=== PATIENT | male | born 1940 | race Caucasian/White ===

== ENCOUNTER → 2016-03-27 | Outpatient (CLI) | payer OTHER ==
--- NOTE | 2016-03-29 08:18 | DX ---
DEXA Bone Densitometry Technique: DEXA scan was performed on [employer] W Bone Densitometer Indication: Osteoporosis Comparator Study: March 01, 2014 Results: Lumbar Spine BMD: 0.889 T-score: -1.8 Prior BMD: 0.809 % change: 9.9% Total Hip (Right) BMD: 0.643 T-score: -2.6 Femoral Neck (Right) BMD: 0.557 T-score: -2.7 Total Hip (Left) BMD: 0.705 T-score: -2.2 Femoral Neck (Left) BMD: 0.595 T-score: -2.5 CONCLUSION: Osteoporosis ADDITIONAL COMMENTS: In comparison to the previous study from February 2013 there's been a significant increase in the bone mineral density of the lumbar spine. This patient needs National Osteoporosis Foundation guidelines for further management and treatment o f osteoporosis. By FRAX calculation, the estimated 10 year probability of any major osteoporotic fracture is 12%, and the estimated 10 year probability of hip fracture is 5%. Consider repeating the study in 2 years or as clinically indicated. NOTE: The risk of osteoporotic fractures increases approximately twofold for each 1.0 SD decrease in T-score. The T-score represents the standard deviations from a young normal, same sex, reference po pulation. Low bone density is not the only risk factor for fracture. Clinical factors to consider include fall risk, previous osteoporotic fractures, family history of fractures, smoking, and low body weight. Patients who have an unexpectedly low BMD may need to be evaluated for secondary causes of low bone m ineral density. In comparing the present study to a prior study, lack of a significant increase or decrease in BMD ma y signify efficacy of the patient's present treatment. Bone mineral density measurements performed with densitometers produced by different manufacturers ar e not comparable. For the most reproducible BMD measurement, subsequent exams should be performed on the same densitometer.
== END ==
LOC: BMCIMAGING 13:38
PROVIDERS: ATTEND Internal Medicine Endocrinology, Diabetes & Metabolism
DX: M81.0 Age-related osteoporosis without current pathological fracture (principal)

== ENCOUNTER 2016-03-28 06:47 | Emergency (ER) | payer OTHER ==
[2016-03-28 07:09] VITALS: RESP 18; TEMP 97.9
[2016-03-28] MEDS ORDERED: NS 1,000 ML IV ONE (07:42)
--- NOTE | 2016-03-28 07:45 | EDPHY ---
H & P Stated Complaint: cough aches fever Time Seen by Provider: 03/28/16 07:31 HPI/ROS: CHIEF COMPLAINT: Cough, congestion HISTORY OF PRESENT ILLNESS: Patient is a 75-year-old man whose been traveling extensively around the world who comes to the emergency department complaining of 1 week of cough, congestion and shortness of breath with exertion as well as sinus congestion. He denies chest pain. He denies abdominal pain, nausea vomiting. He is grandson who is been traveling with him was sick 2 weeks ago and he thinks he got it from him. He was seen in a clinic in [place] 5 days ago and was diagnosed clinically with pneumonia and started on azithromycin. He states that he finished the course today and has not felt any better. Also he and his were concerned about PE because he has had somewhat travel and has suffered from a DVT several years ago after a ankle surgery. He is not currently on any blood thinners. He does not have any cardiac history. he does feel achy can hear rattling in his chest when he coughs or sleeps at night. REVIEW OF SYSTEMS: Constitutional: denies: chills, fever, recent illness, recent injury EENTM: denies: blurred vision, double vision, nose congestion Respiratory: See HPI Cardiac: denies: chest pain, irregular heart rate, lightheadedness, palpitations Gastrointestinal/Abdominal: denies: abdominal pain, diarrhea, nausea, vomiting, blood streaked stools Genitourinary: denies: dysuria, frequency, hematuria, pain Musculoskeletal: denies: joint pain, muscle pain Skin: denies: lesions, rash, jaundice, bruising Neurological: denies: headache, numbness, paresthesia, tingling, dizziness, weakness Hematologic/Lymphatic: denies: blood clots, easy bleeding, easy bruising Immunologic/allergic: denies: HIV/AIDS, transplant EXAM: GENERAL: Well-appearing, well-nourished and in no acute distress. HEAD: Atraumatic, normocephalic. EYES: Pupils equal round and reactive to light, extraocular movements intact, sclera anicteric, conjunctiva are normal. ENT: TMs normal, nares patent, oropharynx clear without exudates. Moist mucous membranes. NECK: Normal range of motion, supple without lymphadenopathy or JVD. LUNGS: Breath sounds clear to auscultation bilaterally and equal. No wheezes rales or rhonchi. HEART: Regular rate and rhythm without murmurs, rubs or gallops. ABDOMEN: Soft, nontender, normoactive bowel sounds. No guarding, no rebound. No masses appreciated. BACK: No CVA tenderness, no spinal tenderness, step-offs or deformities EXTREMITIES: Normal range of motion, no pitting or edema. No clubbing or cyanosis. NEUROLOGICAL: Cranial nerves II through XII grossly intact. Normal speech, normal gait. 5/5 strength, normal movement in all extremities, normal sensation PSYCH: Normal mood, normal affect. SKIN: Warm, dry, normal turgor, no visible rashes or lesions. Source: Patient Exam Limitations: No limitations - Personal History Current Tetanus/Diphtheria Vaccine: Yes Current Tetanus Diphtheria and Acellular Pertussis (TDAP): Yes - Medical/Surgical History Hx Asthma: Yes Hx Chronic Respiratory Disease: No Hx Diabetes: No Hx Cardiac Disease: No Hx Renal Disease: No Hx Cirrhosis: No Hx Alcoholism: No Hx HIV/AIDS: No Hx Splenectomy or Spleen Trauma: No Other PMH: High cholesterol. prostate ca. htn - Family History Significant Family History: No pertinent family hx - Social History Smoking Status: Never smoked Alcohol Use: Sober Drug Use: None Constitutional: Initial Vital Signs Temperature (C) 36.6 C 03/28/16 07:03 Heart Rate 78 03/28/16 07:03 Respiratory Rate 18 03/28/16 07:03 Blood Pressure 120/78 03/28/16 07:03 O2 Sat (%) 98 03/28/16 07:03 O2 Delivery Mode Room Air Allergies/Adverse Reactions: niacin [Niacin] Allergy (Unknown, Verified 04/28/11 04:53) Home Medications: Medication Instructions Recorded Aspirin [Aspirin 81mg] 81 mg PO DAILY 04/07/11 Rosuvastatin Calcium [Crestor] 340 mg PO 04/07/11 TELMISARTAN [Micardis] 80 mg PO 04/07/11 amLODIPine BESYLATE [Norvasc] 2.5 mg PO DAILY 04/07/11 levOFLOXACIN [levAQUIN] 750 mg PO DAILY #10 tab 03/28/16 Medical Decision Making - Diagnostics EKG Interpretation: An EKG obtained and was read and documented in trace view. Please see trace view for full reading and report. Sinus rhythm, no acute ischemic changes, unchanged from March 2011 Imaging: Results: CT scan of the chest angiogram was obtained. The results of the study are negative for PE, positive for left lower lobe infiltrate and bronchi attic changes. The study was read by Dr. Gan . I viewed the images myself on the PACS system. ED Course/Re-evaluation: 9:45 a.m. we discussed the CT, EKG and lab results. The patient is reassured. He is saturating 97% on room air. He is not tachycardic. I will treat him with oral Levaquin. Oral azithromycin does have a 15-20% resistance rate for outpatient pneumonia. We had a discussion about quinolones and I told them that this is a an antibiotic that could potentially have some serious complications. We agreed that in this situation this is the right medication and one that I would give my family member but they do need to be aware these complications. We discussed increased risk of tendon rupture as well as peripheral neuropathy. I advised the patient to limit high impact activities. I told them to return for evaluation if they develop tendon or joint pain. This conversation represented shared medical decision making. We did consider alternatives. Differential Diagnosis: Partial list of the Differential diagnosis considered include but were not limited to; pneumonia, bronchitis, PE and although unlikely based on the history and physical exam, I also considered acute coronary disease, dissection , aneurysm. I discussed these differential diagnoses and the plan with the patient as well as the usual and expected course. The patient understands that the diagnosis is provisional and that in medicine we are not always correct and that further workup is often warranted. Usual and customary warnings were given. All of the patient's questions were answered. The patient was instructed to return to the emergency department should the symptoms at all worsen or return, otherwise to followup with the physician as we discussed. - Data Points Laboratory Results: Laboratory Results 03/28/16 08:02 03/28/16 08:02 03/28/16 08:02 WBC 6.55 10^3/uL (3.80-9.50) RBC 5.01 10^6/uL (4.40-6.38) Hgb 15.5 g/dL (13.7-17.5) Hct 44.8 % (40.0-51.0) MCV 89.4 fL (81.5-99.8) MCH 30.9 pg (27.9-34.1) MCHC 34.6 g/dL (32.4-36.7) RDW 13.1 % (11.5-15.2) Plt Count 183 10^3/uL (150-400) MPV 9.2 fL (8.7-11.7) Neut % (Auto) 76.4 H % (39.3-74.2) Lymph % (Auto) 14.7 L % (15.0-45.0) [place] % (Auto) 7.5 % (4.5-13.0) Eos % (Auto) 0.9 % (0.6-7.6) Baso % (Auto) 0.2 L % (0.3-1.7) Nucleat RBC Rel Count 0.0 % (0.0-0.2) Absolute Neuts (auto) 5.01 10^3/uL (1.70-6.50) Absolute Lymphs (auto) 0.96 L 10^3/uL (1.00-3.00) Absolute Monos (auto) 0.49 10^3/uL (0.30-0.80) Absolute Eos (auto) 0.06 10^3/uL (0.03-0.40) Absolute Basos (auto) 0.01 L 10^3/uL (0.02-0.10) Absolute Nucleated RBC 0.00 10^3/uL (0-0.01) Immature Gran % 0.3 % (0.0-1.1) Immature Gran # 0.02 10^3/uL (0.00-0.10) APTT 27.5 SEC (23.0-38.0) Sodium 141 mEq/L (134-144) Potassium 4.0 mEq/L (3.5-5.2) Chloride 106 mEq/L (97-110) Carbon Dioxide 24 mEq/l (22-31) Anion Gap 11 mEq/L (8-16) BUN 13 mg/dL (7-23) Creatinine 0.7 mg/dL (0.7-1.3) Estimated GFR > 60 Glucose 96 mg/dL (70-100) Calcium 9.2 mg/dL (8.5-10.4) Troponin I < 0.012 ng/mL (0-0.034) Medications Given: Discontinued Medications Sodium Chloride (Ns) 1,000 mls @ 0 mls/hr IV ONCE ONE PRN Reason: Wide Open Stop: 03/28/16 07:43 Last Admin: 03/28/16 08:06 Dose: 1,000 mls Levofloxacin (Levaquin) 750 mg PO EDNOW ONE PRN Reason: Protocol Stop: 03/28/16 09:51 Last Admin: 03/28/16 10:10 Dose: 750 mg Departure - Departure Disposition: Home, Routine, Self-Care Clinical Impression: Pneumonia Qualifiers: Pneumonia type: due to unspecified organism Laterality: left Lung location: lower lobe of lung Qualifier Code: (J18.1) Lobar pneumonia, unspecified organism Condition: Fair Instructions: Pneumonia (ED) Referrals: Sara Zavaleta MD [Primary Care Provider] - As per Instructions Prescriptions: levOFLOXACIN [levAQUIN] 750 mg PO DAILY #10 tab
[2016-03-28] MEDS ORDERED: IOPAMIDOL (ISOVUE 370) 100 ML BTL IV ONE (07:50)
[2016-03-28 08:14] LABS: % IMMATURE GRANULYOCYTES 0.3 % (0.0-1.1); ABSOLUTE IMMATURE GRANULOCYTES 0.02 10^3/uL (0.00-0.10); ADD DIFF? NO; ADD MORPH? NO; ADD SCAN? NO; ATYPICAL LYMPHOCYTE FLAG 20 (0-99); FRAGMENT RBC FLAG 0 (0-99); HEMATOCRIT 44.8 % (40.0-51.0); HEMOGLOBIN 15.5 g/dL (13.7-17.5); LEFT SHIFT FLG 0 (0-99); LIPEMIA HEMOLYSIS FLAG 90 (0-99); MEAN CELL HEMOGLOBIN 30.9 pg (27.9-34.1); MEAN CELL HEMOGLOBIN CONCENTR. 34.6 g/dL (32.4-36.7); MEAN CELL VOLUME 89.4 fL (81.5-99.8); MEAN PLATELET VOLUME 9.2 fL (8.7-11.7); PLATELET CLUMPS FLAG 0 (0-99); PLATELET COUNT 183 10^3/uL (150-400); RED BLOOD CELL COUNT 5.01 10^6/uL (4.40-6.38); RED CELL DISTRIBUTION WIDTH 13.1 % (11.5-15.2)
--- NOTE | 2016-03-28 08:15 | CPEKG ---
Heart Rate: 73 RR Interval: 822 P-R Interval: 192 QRSD Interval: 94 QT Interval: 416 QTC Interval: 459 P [place]: 57 QRS [place]: -32 T Wave [place]: 54 EKG Severity - OTHERWISE NORMAL ECG - EKG Impression: SINUS RHYTHM EKG Impression: LEFT AXIS DEVIATION Electronically Signed By: Boaz Kan 28-Mar-2016 08:28:25
[2016-03-28 08:40] LABS: ANION GAP 11 mEq/L (8-16); CALCIUM 9.2 mg/dL (8.5-10.4); CARBON DIOXIDE 24 mEq/l (22-31); CHLORIDE 106 mEq/L (97-110); CREATININE 0.7 mg/dL (0.7-1.3); GLOMERULAR FILTRATION RATE > 60; GLUCOSE 96 mg/dL (70-100); SODIUM 141 mEq/L (134-144)
[2016-03-28 08:52] LABS: TROPONIN I < 0.012 ng/mL (0-0.034)
[2016-03-28 09:26] VITALS: O2SAT 96
--- NOTE | 2016-03-28 09:40 | CT ---
CT Pulmonary Angiogram History: Dyspnea, history of prostate cancer and DVT, recent episode of pneumonia. Recent travel. Comparison: PA and lateral chest September 07, 2015. Technique: Axial contrast-enhanced images were obtained through the chest following the uneventful in travenous administration of 90 mL Isovue-370. Creatinine is 0.7. Multiplanar reformations were perfo rmed through the pulmonary arteries. Dose reduction techniques were utilized. Findings: This is a good quality study with limited visualization of peripheral segmental and subsegm ental vessels due to respiratory motion. A 4 mm noncalcified left upper lobe nodule is present (serie s 6 image 78). There are indistinct opacities in the left lower lobe, including minimal consolidation (series 6 image 150). Mild diffuse peribronchial thickening is present with scattered mucous pluggin g. Three-vessel coronary artery atherosclerosis is present, most prominent in the LAD and RCA. The ao rta is mildly ectatic, measuring 3.7 cm, with mild atherosclerosis without dissection. No pathologica lly enlarged lymph nodes are identified. Degenerative change is present in the spine with mild anteri or height reduction of multiple lower thoracic vertebral bodies. No aggressive osseous lesions are id entified. Hyperenhancement in the liver suggests a benign perfusion anomaly. Impression: 1. No visible pulmonary embolus. 2. Indistinct left basilar opacities that may be related to the patient's recent episode of pneumonia . Follow-up CT is recommended in three months. 3. Scattered tiny pulmonary nodules, of doubtful clinical significance; however, given the patient's history of prostate cancer, follow up would BE recommended per Fleischner Society guidelines. 4. Bronchitis. 5. Coronary artery atherosclerosis. 6. Additional findings as above. Findings discussed with Boaz Kan, March 28, 2016, at 9:33 a.m.
[2016-03-28 10:12] VITALS: BP 133/78; PULSE 72
== END 2016-03-28 10:12 | disposition home or self-care (01) ==
DX: J18.1 Lobar pneumonia, unspecified organism (principal); I10 Essential (primary) hypertension; J45.909 Unspecified asthma, uncomplicated; Z85.46 Personal history of malignant neoplasm of prostate; Z79.82 Long term (current) use of aspirin
CPT/HCPCS: 71275; 93005; 96360; 99285; Q9967

== ENCOUNTER → 2016-05-02 | Outpatient (CLI) | payer OTHER | PROVIDERS: ATTEND Internal Medicine | DX: R13.10 Dysphagia, unspecified (principal); R05 Cough; K21.9 Gastro-esophageal reflux disease without esophagitis | CPT/HCPCS: 74230; 92611; G8996; G8997; G8998 ==

== ENCOUNTER → 2016-07-03 | Outpatient (CLI) | payer OTHER | LOC: FIMAGING 13:44 | PROVIDERS: ATTEND Internal Medicine | DX: Z09 Encounter for follow-up examination after completed treatment for conditions other than malignant neoplasm (principal); I25.83 Coronary atherosclerosis due to lipid rich plaque; I77.819 Aortic ectasia, unspecified site ==

== ENCOUNTER 2017-06-02 18:48 | Emergency (ER) | payer OTHER ==
[2017-06-02] MEDS ORDERED: NS 1,000 ML IV ONE (19:07)
[2017-06-02] MEDS ORDERED: ONDANSETRON 4 MG/2 ML VIAL IVP ONE (19:07)
--- NOTE | 2017-06-02 19:09 | EDPHY ---
H & P Time Seen by Provider: 06/02/17 19:00 HPI/ROS: CHIEF COMPLAINT: Nausea HISTORY OF PRESENT ILLNESS: Patient just returned from a 35 day trip to [facility] and [place] and [place]. He has been flying back and arrived yesterday but about 7 hr prior to arrival began having pretty significant nausea. No vomiting but a little bit of loose stool. No associated abdominal pain. Not better worse with anything. He has not had fevers or chest pain or shortness of breath. No headache. Symptoms moderate. REVIEW OF SYSTEMS: Eye: no change in vision ENT: no sore throat Cardiac: no chest pain or syncope Pulmonary: no cough or SOB Abdomen: HPI Musculoskeletal: no back pain Skin: no rash Neuro: no headache Constitutional: no fever : no urinary symptoms A comprehensive 10 point review of systems is otherwise negative aside from elements mentioned in the history of present illness. PAST MEDICAL HISTORY: Includes high cholesterol prostate cancer and hypertension Social history: Recent travel as noted above General Appearance: Alert and conversant, cooperative. Eyes: No scleral icterus. ENT, Mouth: Normal mucous membranes. Respiratory: Normal respiratory effort, breath sounds equal, lungs are clear to auscultation. Cardiovascular: Regular rate and rhythm. Gastrointestinal: Abdomen is soft and non tender. Neurological: Alert, face symmetric, normal motor and sensory in extremities. Skin: Warm and dry, no rashes. Musculoskeletal: No peripheral edema. Psychiatric: Not agitated. Emergency Department course/MDM: Patient is afebrile but noted to have a heart rate of 95. Plan for EKG and labs as well as Zofran 4 mg IV. 1954: Patient appears comfortable, less nausea, agreeable with discharge. EKG and labs reviewed him. I think the most reasonable course of action at this time is symptomatic treatment with outpatient follow-up if he does not improve. Smoking Status: Never smoked Constitutional: Initial Vital Signs Temperature (C) 36.8 C 06/02/17 18:48 Heart Rate 95 06/02/17 18:48 Respiratory Rate 16 06/02/17 18:48 Blood Pressure 112/78 06/02/17 18:48 O2 Sat (%) 97 06/02/17 18:48 O2 Delivery Mode Room Air Allergies/Adverse Reactions: niacin [Niacin] Allergy (Unknown, Verified 04/28/11 04:53) Home Medications: Medication Instructions Recorded Aspirin [Aspirin 81mg] 81 mg PO DAILY 04/07/11 Rosuvastatin Calcium [Crestor] 340 mg PO 04/07/11 TELMISARTAN [Micardis] 80 mg PO 04/07/11 amLODIPine BESYLATE [Norvasc] 2.5 mg PO DAILY 04/07/11 Medical Decision Making - Diagnostics EKG Interpretation: 12-lead EKG interpreted by me; official reading is in trace master. My interpretation is sinus rhythm rate 91 with left atrial abnormality and left anterior fascicular block, no acute ischemic changes Differential Diagnosis: Differential for nausea considered including but not limited to infectious or gastroenteritis, acute coronary syndrome, other viral, influenza, food related. - Data Points Laboratory Results: Laboratory Results 06/02/17 19:14 06/02/17 19:14 06/02/17 06/02/17 19:14 19:14 WBC 6.89 10^3/uL 10^3/uL (3.80-9.50) RBC 5.43 10^6/uL 10^6/uL (4.40-6.38) Hgb 16.7 g/dL g/dL (13.7-17.5) Hct 47.4 % % (40.0-51.0) MCV 87.3 fL fL (81.5-99.8) MCH 30.8 pg pg (27.9-34.1) MCHC 35.2 g/dL g/dL (32.4-36.7) RDW 13.0 % % (11.5-15.2) Plt Count 194 10^3/uL 10^3/uL (150-400) MPV 9.6 fL fL (8.7-11.7) Neut % (Auto) 87.7 % H % (39.3-74.2) Lymph % (Auto) 4.2 % L % (15.0-45.0) [place] % (Auto) 6.7 % % (4.5-13.0) Eos % (Auto) 1.0 % % (0.6-7.6) Baso % (Auto) 0.1 % L % (0.3-1.7) Nucleat RBC Rel Count 0.0 % % (0.0-0.2) Absolute Neuts (auto) 6.04 10^3/uL 10^3/uL (1.70-6.50) Absolute Lymphs (auto) 0.29 10^3/uL L 10^3/uL (1.00-3.00) Absolute Monos (auto) 0.46 10^3/uL 10^3/uL (0.30-0.80) Absolute Eos (auto) 0.07 10^3/uL 10^3/uL (0.03-0.40) Absolute Basos (auto) 0.01 10^3/uL L 10^3/uL (0.02-0.10) Absolute Nucleated RBC 0.00 10^3/uL 10^3/uL (0-0.01) Immature Gran % 0.3 % % (0.0-1.1) Immature Gran # 0.02 10^3/uL 10^3/uL (0.00-0.10) Sodium 139 mEq/L mEq/L (135-145) Potassium 4.0 mEq/L mEq/L (3.5-5.2) Chloride 104 mEq/L mEq/L (97-110) Carbon Dioxide 23 mEq/l mEq/l (22-31) Anion Gap 12 mEq/L mEq/L (8-16) BUN 21 mg/dL mg/dL (7-23) Creatinine 0.8 mg/dL mg/dL (0.7-1.3) Estimated GFR > 60 Glucose 119 mg/dL H mg/dL (70-100) Calcium 9.7 mg/dL mg/dL (8.5-10.4) Medications Given: Discontinued Medications Sodium Chloride (Ns) 1,000 mls @ 0 mls/hr IV EDNOW ONE; Wide Open PRN Reason: Protocol Stop: 06/02/17 19:08 Last Admin: 06/02/17 19:17 Dose: 1,000 mls Ondansetron HCl (Zofran) 4 mg IVP EDNOW ONE Stop: 06/02/17 19:08 Last Admin: 06/02/17 19:22 Dose: 4 mg Departure - Departure Disposition: Home, Routine, Self-Care Clinical Impression: Nausea Condition: Good Instructions: Ondansetron (By injection), Ondansetron (By mouth) Referrals: Sara Zavaleta MD [Primary Care Provider] - As per Instructions
[2017-06-02] MEDS ORDERED: ONDANSETRON 4MG PREPACK#2 BTL TAKEHOME ONE (19:12)
--- NOTE | 2017-06-02 19:12 | CPEKG ---
Heart Rate: 91 RR Interval: 659 P-R Interval: 196 QRSD Interval: 86 QT Interval: 364 QTC Interval: 448 P [place]: 36 QRS [place]: -52 T Wave [place]: 61 EKG Severity - ABNORMAL ECG - EKG Impression: SINUS RHYTHM EKG Impression: PROBABLE LEFT ATRIAL ABNORMALITY EKG Impression: LEFT ANTERIOR FASCICULAR BLOCK Electronically Signed By: Roosevelt Moreno 02-Jun-2017 19:12:21
[2017-06-02 19:26] LABS: PLATELET COUNT 194 10^3/uL (150-400)
[2017-06-02 20:20] VITALS: BP 130/83
== END 2017-06-02 20:20 | disposition home or self-care (01) ==
DX: R11.0 Nausea (principal); I10 Essential (primary) hypertension; E86.9 Volume depletion, unspecified; Z79.82 Long term (current) use of aspirin; Z85.46 Personal history of malignant neoplasm of prostate
CPT/HCPCS: 93005; 96361; 96374; 99284; J2405

== ENCOUNTER → 2017-10-10 | Outpatient (CLI) | payer OTHER | LOC: BHFA 13:00 | PROVIDERS: ATTEND Internal Medicine Cardiovascular Disease | DX: J45.909 Unspecified asthma, uncomplicated (principal) ==

== ENCOUNTER → 2018-04-28 | Outpatient (CLI) | payer OTHER | LOC: BMCIMAGING 09:48 | PROVIDERS: ATTEND Internal Medicine Endocrinology, Diabetes & Metabolism | DX: M81.0 Age-related osteoporosis without current pathological fracture (principal); Z85.46 Personal history of malignant neoplasm of prostate ==